=== PATIENT | female | born 1960 | race American Indian/Alaskan Native ===

== ENCOUNTER 2016-12-28 18:18 | Emergency (ER) | payer MEDICARE ==
--- NOTE | 2016-12-28 20:31 | Emergency Department Report ---
ED General Adult HPI - General Chief complaint: Urogenital-Female Stated complaint: CATH LEAKING Time Seen by Provider: 12/28/16 20:12 Source: patient, EMS (ems notes not available at time of chart dictation), RN notes reviewed Mode of arrival: Stretcher Limitations: Physical Limitation - History of Present Illness Initial comments: This is a 56-year-old female. She is previously unknown to me. Has a past medical history of multiple sclerosis, poor mobility at baseline, as per family , follows at [facility]. Patient has had an indwelling Rossi catheter for 2 years, had a Rossi catheter recently changed at another hospital. Brought to the hospital by EMS for leaking Rossi catheter from the vagina. This is painless. No fevers or chills. No chest pain or shortness of breath. As per EMS documentation, family indicates "when she sitting and urination is leaking outside of the Rossi catheter, and patient was released from the hospital on 12/25/2016 for the same thing." -: Gradual Consistency: constant Improves with: none Worsens with: none Associated Symptoms: denies other symptoms - Related Data Allergies Allergy/AdvReac Type Severity Reaction Status Date / Time No Known Allergies Allergy Unverified 12/28/16 18:21 ED Review of Systems ROS: Stated complaint: CATH LEAKING Other details as noted in HPI Constitutional: denies: fever ENT: denies: epistaxis Respiratory: denies: cough Cardiovascular: denies: chest pain Gastrointestinal: denies: nausea, vomiting Genitourinary: as per HPI Musculoskeletal: denies: back pain Neurological: denies: headache, weakness Psychiatric: denies: anxiety ED Past Medical Hx - Past Medical History Additional medical history: M.S - Surgical History Past Surgical History?: No - Social History Smoking Status: Never Smoker Substance Use Type: None ED Physical Exam - General Limitations: Physical Limitation General appearance: alert, in no apparent distress - Head Head exam: Present: atraumatic, normocephalic - Eye Eye exam: Present: normal appearance, other (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 Absent: tenderness, meningismus - Respiratory Respiratory exam: Present: normal lung sounds bilaterally. Absent: respiratory distress, wheezes, rales, rhonchi, stridor, decreased breath sounds - Cardiovascular Cardiovascular Exam: Present: regular rate, normal rhythm, normal heart sounds. Absent: bradycardia, tachycardia, irregular rhythm, systolic murmur, diastolic murmur, rubs, gallop - GI/Abdominal GI/Abdominal exam: Present: soft, normal bowel sounds. Absent: distended, tenderness, guarding, rebound, rigid, pulsatile mass - Rectal Rectal exam: Present: normal inspection, other (no obvious sacral breakdown, no obvious skin breakdown.) - External exam: Present: normal external exam, other (Rossi catheter which is draining clear yellow urine) Bi-manual exam: Present: other (during external rectal examination, an external vaginal examination, I am escorted by nurse Amalia graham) - Extremities Exam Extremities exam: Present: normal inspection, normal capillary refill. Absent: tenderness, pedal edema, joint swelling, calf tenderness - Back Exam Back exam: Present: normal inspection. Absent: tenderness, CVA tenderness (R), CVA tenderness (L), muscle spasm, paraspinal tenderness, vertebral tenderness - Neurological Exam Neurological exam: Present: alert, oriented X3, motor sensory deficit (patient has chronic weakness, right upper extremity, right lower extremity) - Psychiatric Psychiatric exam: Present: normal affect, normal mood - Skin Skin exam: Present: warm, dry, intact, normal color. Absent: rash ED Course Vital Signs 12/28/16 12/28/16 20:50 21:15 Temperature 99.0 F 98.9 F Pulse Rate 94 H 91 H Respiratory 18 20 Rate Blood Pressure 135/84 123/78 [Left] O2 Sat by Pulse 96 97 Oximetry - Reevaluation(s) Reevaluation #1: 12/28/16 20:32 differential diagnosis: Bladder muscle spasm, overflow incontinence, urinary tract infection, general medical evaluation Assessment and plan: 56-year-old female with complaint of urine that is leaking around the tube in the urethra. She is afebrile with reassuring vital signs. Has no other complaints. Rossi catheter is draining clear yellow urine. I don' t see an emergent condition at this time. Patient is medically suitable to follow-up in outpatient primary care doctor or urology specialist. Given recent change of Rossi catheter, may have a component of bladder spasm. I would defer to urology to further manage this. A social worker clinical consult is placed as per the family's request to have the patient evaluated for additional services at home. She will be discharged home with instructions to follow up with primary care, urology. Return precautions are extensively reviewed. Reevaluation #2: 12/28/16 22:49 urinalysis not consistent with urinary tract infection. Rossi catheter replaced by nursing staff. Critical care attestation.: If time is entered above; I have spent that time in minutes in the direct care of this critically ill patient, excluding procedure time. ED Disposition Clinical Impression: Rossi catheter in place Disposition: DISCHARGED TO HOME OR SELFCARE Is pt being admited?: No Does the pt Need Aspirin: No Condition: Stable Instructions: Rossi Catheter Insertion (ED), Rossi Catheter Placement and Care (ED) Additional Instructions: Continue current outpatient medications. Cultures was sent today, was also be available in the next 3-5 days. Have a primary care doctor contact the medical records department to obtain culture results. Dr. López is a local urology specialist. Follow-up with urology specialist within the next week to 2 weeks. Return to the ER right away with fevers or chills, chest pain or shortness of breath, intractable nausea or vomiting, inability to tolerate liquid feeds, new , worsening or different symptoms. In addition, a social work consult was placed today, and you should be contacted at the listed phone number that you have given for further evaluation. Referrals: GABRIEL ERICKSON MD [Primary Care Provider] - 3-5 Days ANA M LÓPEZ MD [Staff Physician] - 3-5 Days
[2016-12-28 21:31] LABS: Bacteria,Urine 1+ /HPF (Negative); Mucus,Urine FEW /HPF
[2016-12-28 21:46] VITALS: BP 123/78
[2016-12-28 21:53] LABS: Bilirubin,Urine Small (Negative)
[2016-12-28 21:54] LABS: Blood,Urine Negative (Negative); Ketones,Urine Negative (Negative)
[2016-12-28 21:55] LABS: PH,Urine 6.5 (5.0-7.0)
[2016-12-28 21:56] LABS: Protein,Urine <15 mg/dL mg/dL (Negative); Urobilinogen,Urine 0.2 mg/dL (<2.0)
[2016-12-28 21:57] LABS: Leukocyte Esterase,Urine Moderate (Negative); Nitrite,Urine Negative (Negative)
== END 2016-12-28 21:30 | disposition home or self-care (01) ==
LOC: ED 18:18
DX: T83.038A Leakage of other urinary catheter, initial encounter (principal); Y84.8 Other medical procedures as the cause of abnormal reaction of the patient, or of later complication, without mention of misadventure at the time of the procedure; Y92.89 Other specified places as the place of occurrence of the external cause
CPT/HCPCS: 51702; 81001; 87086